=== PATIENT | female | born 1935 | race Caucasian/White ===

== ENCOUNTER 2019-03-25 07:37 | Inpatient (IN) | payer MEDICARE, BC ==
[~2019-03-25] VITALS: Ht 162.6 cm; Wt 60.8 kg
[2019-03-25] MEDS ORDERED: ONDANSETRON HCL/PF 4 MG/2 ML VIAL IVP ONE (08:00)
[2019-03-25] MEDS ORDERED: ONDANSETRON HCL/PF 4 MG/2 ML VIAL ONE (08:00)
[2019-03-25] MEDS ORDERED: IV NS 0.9% 1,000 ML BAG IV ONE (08:00)
[2019-03-25 08:33] LABS: BASOPHILS # (AUTO) 0.2 /CMM (0.0-0.2); EOSINOPHILS % (AUTO) 0.3 % (0.0-6.0); HEMATOCRIT 41 % (33-45); HEMOGLOBIN 14.2 g/dL (11.5-14.8); LYMPHOCYTES # (AUTO) 1.4 /CMM (0.8-4.8); LYMPHOCYTES % (AUTO) 12.3 % (20.0-44.0); MEAN CORPUSCULAR HGB CONC 34 g/dl (31.0-36.0); MEAN CORPUSCULAR VOLUME 90 fL (82-100); MONOCYTES # (AUTO) 0.9 /CMM (0.1-1.30); MONOCYTES % (AUTO) 7.7 % (2.0-12.0); NEUTROPHILS # (AUTO) 8.6 /CMM (1.8-8.9); NEUTROPHILS % (AUTO) 77.7 % (43.0-81.0); PLATELET COUNT (AUTO) 267 /CMM (150-450); RED BLOOD CELL COUNT(AUTO) 4.63 MIL/uL (4.0-5.2); WHITE BLOOD COUNT (AUTO) 11.1 K/uL (4.3-11.0)
[2019-03-25 08:41] LABS: CALCIUM, SERUM 9.8 mg/dL (8.5-10.1); CARBON DIOXIDE 25 mmol/L (21-32); CHLORIDE 95 mmol/L (98-107); CREATININE 1.1 mg/dL (0.6-1.3); GLUCOSE 108 mg/dL (74-106); POTASSIUM 3.6 mmol/L (3.5-5.1); SODIUM SERUM 132 mmol/L (136-145); UREA NITROGEN, BLOOD 23 mg/dL (7-18)
[2019-03-25] MEDS ORDERED: LORAZEPAM INJ 2 MG/ML VIAL ONE (08:43)
[2019-03-25 08:52] LABS: ALANINE AMINOTRANSFERASE 34 U/L (12-78); ALKALINE PHOSPHATASE 156 U/L (46-116); ASPARTATE AMINOTRANSFERASE 37 U/L (15-37); BILIRUBIN,TOTAL 0.6 mg/dL (0.2-1.0); LIPASE 179 U/L (73-393); TOTAL PROTEIN, SERUM 8.1 g/dL (6.4-8.2)
[2019-03-25] MEDS ORDERED: LORAZEPAM INJ 2 MG/ML VIAL IV ONE (09:00)
[2019-03-25] MEDS ORDERED: AMLO5TAB9 PO (09:31)
[2019-03-25] MEDS ORDERED: MULT-24 PO (09:31)
[2019-03-25] MEDS: NITROGLYCERIN 0.4 MG/HR PATCH.TD24 TD SCH (10:00)
[2019-03-25] MEDS ORDERED: ASPIRIN 325 MG TABLET PO ONE (10:00)
[2019-03-25] MEDS ORDERED: ASPIRIN 325 MG TABLET ONE (10:04)
[2019-03-25 10:06] LABS: APPEARANCE,URINE Turbid (CLEAR); BILIRUBIN,URINE Negative (NEGATIVE); BLOOD, URINE Trace-intact Ery/uL (NEGATIVE); COLOR,URINE Yellow (YELLOW); KETONES,URINE Negative (NEGATIVE); LEUKOCYTE ESTERASE ,URINE Large (NEGATIVE); NITRITE, URINE Negative (NEGATIVE); PH,URINE 8.5 (5.0-8.0); PROTEIN,URINE 30 mg/dl (NEGATIVE); UGLUCOSE Negative (NEGATIVE); UROBILINOGEN,URINE 0.2 EU/dL (0.2)
[2019-03-25] MEDS ORDERED: NITROGLYCERIN PACKET 1 GM PACKET ONE (10:06)
[2019-03-25 10:16] LABS: BACTERIA,URINE Many /HPF (None Seen); RBC,URINE 0-2 /HPF (0-2); SQUAMOUS EPITHELIAL CELL,UR Few /HPF (None Seen)
[2019-03-25] MEDS ORDERED: NITROGLYCERIN PACKET 1 GM PACKET TOP ONE (10:30)
[2019-03-25] MEDS ORDERED: CEFTRIAXONE 1GM BAG (ER ONLY) 1 GM/50 ML PIGGYBACK IV ONE (10:30)
[2019-03-25] MEDS ORDERED: CEFTRIAXONE 1GM BAG (ER ONLY) 50 ML IV ONE (10:56)
[2019-03-25] MEDS ORDERED: HYDROCODONE/APAP 5/325MG 1 EACH TABLET PO PRN (11:00)
[2019-03-25] MEDS ORDERED: ASPIRIN 300 MG/SUPP.RECT RC ONE (11:00)
[2019-03-25] MEDS ORDERED: MAG HYDROX/AL HYDROX/SIMETH 30 ML UDC PO PRN (11:00)
[2019-03-25] MEDS ORDERED: NITROGLYCERIN 0.4 MG/TAB BOTTLE SL PRN (11:00)
[2019-03-25] MEDS ORDERED: MORPHINE SULFATE INJ 2 MG/ML DISP.SYRIN IV PRN (11:00)
[2019-03-25] MEDS ORDERED: MAGNESIUM HYDROXIDE 30 ML UDC PO PRN (11:00)
[2019-03-25] MEDS ORDERED: ACETAMINOPHEN 325 MG TABLET PO PRN (11:00)
[2019-03-25] MEDS ORDERED: IV NS 0.9% 1,000 ML IV PRN ×2 (11:30→11:36)
[2019-03-25 12:15] VITALS: BP 139/83
[2019-03-25] MEDS ORDERED: TEMAZEPAM 7.5 MG CAPSULE PO PRN (12:30)
[2019-03-25] MEDS: AMLODIPINE BESYLATE 5 MG TABLET PO SCH (13:16)
[2019-03-25] MEDS: LOSARTAN POTASSIUM 50 MG TABLET PO SCH (13:16)
[2019-03-25] MEDS: PANTOPRAZOLE 40 MG TABLET.DR PO SCH (13:16)
[2019-03-25] MEDS: ATORVASTATIN 10 MG TABLET PO SCH (13:16)
[2019-03-25] MEDS: CARVEDILOL 3.125 MG TABLET PO SCH ×2 (13:16→20:49)
[2019-03-25] MEDS: ONDANSETRON HCL/PF 4 MG/2 ML VIAL IVP PRN ×2 (13:27→20:53)
[2019-03-25 16:00] VITALS: BP 148/94
[2019-03-25 20:00] VITALS: BP 153/89
[2019-03-26] VITALS: BP 117/77
[2019-03-26 04:00] VITALS: BP 118/79
[2019-03-26 06:20] LABS: BASOPHILS % (AUTO) 0.3 % (0.0-2.0); EOSINOPHILS % (AUTO) 3.4 % (0.0-6.0); HEMATOCRIT 38 % (33-45); HEMOGLOBIN 12.6 g/dL (11.5-14.8); LYMPHOCYTES # (AUTO) 1.8 /CMM (0.8-4.8); LYMPHOCYTES % (AUTO) 19.3 % (20.0-44.0); MEAN CORPUSCULAR HGB CONC 33 g/dl (31.0-36.0); MEAN CORPUSCULAR VOLUME 90 fL (82-100); MONOCYTES # (AUTO) 0.8 /CMM (0.1-1.30); MONOCYTES % (AUTO) 9.2 % (2.0-12.0); NEUTROPHILS # (AUTO) 6.2 /CMM (1.8-8.9); NEUTROPHILS % (AUTO) 67.8 % (43.0-81.0); PLATELET COUNT (AUTO) 214 /CMM (150-450); RED BLOOD CELL COUNT(AUTO) 4.21 MIL/uL (4.0-5.2); WHITE BLOOD COUNT (AUTO) 9.1 K/uL (4.3-11.0)
[2019-03-26 06:26] LABS: ALANINE AMINOTRANSFERASE 22 U/L (12-78); ALKALINE PHOSPHATASE 122 U/L (46-116); ASPARTATE AMINOTRANSFERASE 23 U/L (15-37); BILIRUBIN,TOTAL 0.5 mg/dL (0.2-1.0); CALCIUM, SERUM 8.5 mg/dL (8.5-10.1); CARBON DIOXIDE 25 mmol/L (21-32); CHLORIDE 101 mmol/L (98-107); CREATININE 1.1 mg/dL (0.6-1.3); GLUCOSE 96 mg/dL (74-106); MAGNESIUM 1.7 mg/dL (1.8-2.4); PHOSPHORUS 2.9 mg/dL (2.5-4.9); POTASSIUM 3.3 mmol/L (3.5-5.1); SODIUM SERUM 136 mmol/L (136-145); UREA NITROGEN, BLOOD 15 mg/dL (7-18)
[2019-03-26 06:57] LABS: CHOLESTEROL 175 mg/dL (<200); HDL CHOLESTEROL 67 mg/dL (40-60); LDL 96 mg/dL (0-99); TRIGLYCERIDES 74 mg/dL (30-150)
[2019-03-26 08:00] VITALS: BP 114/75
[2019-03-26] MEDS: PANTOPRAZOLE 40 MG TABLET.DR PO SCH (08:34)
[2019-03-26] MEDS: CEFTRIAXONE 1 G in IV D5W 50 ML IV SCH (08:34)
[2019-03-26] MEDS: ASPIRIN 325 MG TABLET PO SCH (08:34)
[2019-03-26] MEDS: MULTIVITAMINS,THERAGRAN 1 UDTAB TABLET PO SCH (08:34)
[2019-03-26] MEDS: AMLODIPINE BESYLATE 5 MG TABLET PO SCH (08:35)
[2019-03-26] MEDS: ATORVASTATIN 10 MG TABLET PO SCH (08:35)
[2019-03-26] MEDS: LOSARTAN POTASSIUM 50 MG TABLET PO SCH (08:35)
[2019-03-26] MEDS: CARVEDILOL 3.125 MG TABLET PO SCH ×2 (08:35→20:26)
[2019-03-26] MEDS: ONDANSETRON HCL/PF 4 MG/2 ML VIAL IVP PRN ×2 (08:38→20:17)
[2019-03-26] MEDS: NITROGLYCERIN 0.4 MG/HR PATCH.TD24 TD SCH (10:00)
[2019-03-26] MEDS ORDERED: AMLODIPINE BESYLATE 5 MG TABLET PO ONE (11:00)
[2019-03-26] MEDS: Magnesium 1GM/D5W 100ML PREMIX 100 ML IV SCH ×2 (11:10→12:39)
[2019-03-26] MEDS: POTASSIUM CHLORIDE 20 MEQ TAB.PRT.SR PO SCH ×3 (11:10→14:25)
[2019-03-26 12:00] VITALS: BP 145/86
[2019-03-26] MEDS ORDERED: PHENAZOPYRIDINE HCL 200 MG TABLET PO PRN (15:30)
[2019-03-26 16:00] VITALS: BP 119/77
[2019-03-26 20:00] VITALS: BP 128/82
[2019-03-27 04:00] VITALS: BP 130/84
[2019-03-27 07:04] LABS: CALCIUM, SERUM 8.9 mg/dL (8.5-10.1); CARBON DIOXIDE 22 mmol/L (21-32); CHLORIDE 109 mmol/L (98-107); GLUCOSE 98 mg/dL (74-106); MAGNESIUM 2.3 mg/dL (1.8-2.4); POTASSIUM 4.1 mmol/L (3.5-5.1); SODIUM SERUM 143 mmol/L (136-145); UREA NITROGEN, BLOOD 14 mg/dL (7-18)
[2019-03-27 08:00] VITALS: BP 114/69
[2019-03-27] MEDS: ASPIRIN 325 MG TABLET PO SCH (09:42)
[2019-03-27] MEDS: ATORVASTATIN 10 MG TABLET PO SCH (09:42)
[2019-03-27] MEDS: PANTOPRAZOLE 40 MG TABLET.DR PO SCH (09:43)
[2019-03-27] MEDS: MULTIVITAMINS,THERAGRAN 1 UDTAB TABLET PO SCH (09:43)
[2019-03-27] MEDS: AMLODIPINE BESYLATE 10 MG TABLET PO SCH (09:43)
[2019-03-27] MEDS: LOSARTAN POTASSIUM 50 MG TABLET PO SCH (09:43)
[2019-03-27] MEDS: CARVEDILOL 3.125 MG TABLET PO SCH (09:44)
[2019-03-27] MEDS: CEFTRIAXONE 1 G in IV D5W 50 ML IV SCH (09:44)
[2019-03-27] MEDS: NITROGLYCERIN 0.4 MG/HR PATCH.TD24 TD SCH (09:49)
[2019-03-27] MEDS ORDERED: IOHEXOL-350 100 ML VIAL IV ONE ×3 (14:55→15:59)
[2019-03-27] MEDS ORDERED: CT SWABBABLE VALVE TRANS SET 1 EA INFUS.SET MC ONE (14:55)
[2019-03-27] MEDS ORDERED: IV NS 0.9% 250 ML IV ONE (14:55)
[2019-03-27] MEDS ORDERED: METOPROLOL TARTRATE INJ 5 MG/5 ML AMPUL ONE ×2 (15:21→15:29)
[2019-03-27] MEDS ORDERED: NITROGLYCERIN 0.4 MG/TAB BOTTLE ONE (15:29)
[2019-03-27 16:00] VITALS: BP 149/68
[2019-03-27] MEDS ORDERED: METOPROLOL TARTRATE INJ 5 MG/5 ML AMPUL IVP ONE (16:00)
[2019-03-27] MEDS ORDERED: IV NS 0.9% 500 ML IV ONE (16:00)
[2019-03-27] MEDS ORDERED: NITROGLYCERIN 0.4 MG/TAB BOTTLE SL ONE (16:00)
[2019-03-27 20:00] VITALS: BP 110/71
[2019-03-27] MEDS: CARVEDILOL 6.25 MG TABLET PO SCH (21:23)
[2019-03-27] MEDS ORDERED: ZOLPIDEM TARTRATE 5 MG TABLET PO PRN (23:00)
[2019-03-28 04:00] VITALS: BP 100/62
[2019-03-28 07:17] LABS: BASOPHILS # (AUTO) 0.1 /CMM (0.0-0.2); EOSINOPHILS % (AUTO) 6.3 % (0.0-6.0); HEMATOCRIT 37 % (33-45); HEMOGLOBIN 12.5 g/dL (11.5-14.8); LYMPHOCYTES % (AUTO) 27.1 % (20.0-44.0); MEAN CORPUSCULAR HGB CONC 34 g/dl (31.0-36.0); MEAN CORPUSCULAR VOLUME 90 fL (82-100); MONOCYTES # (AUTO) 0.8 /CMM (0.1-1.30); MONOCYTES % (AUTO) 10.4 % (2.0-12.0); NEUTROPHILS # (AUTO) 4.1 /CMM (1.8-8.9); NEUTROPHILS % (AUTO) 55.2 % (43.0-81.0); PLATELET COUNT (AUTO) 242 /CMM (150-450); RED BLOOD CELL COUNT(AUTO) 4.13 MIL/uL (4.0-5.2); WHITE BLOOD COUNT (AUTO) 7.4 K/uL (4.3-11.0)
[2019-03-28 07:42] LABS: CALCIUM, SERUM 8.9 mg/dL (8.5-10.1); CARBON DIOXIDE 23 mmol/L (21-32); CHLORIDE 108 mmol/L (98-107); CREATININE 1.1 mg/dL (0.6-1.3); GLUCOSE 87 mg/dL (74-106); POTASSIUM 4.1 mmol/L (3.5-5.1); SODIUM SERUM 142 mmol/L (136-145); UREA NITROGEN, BLOOD 16 mg/dL (7-18)
[2019-03-28 08:00] VITALS: BP 117/72
[2019-03-28] MEDS: MULTIVITAMINS,THERAGRAN 1 UDTAB TABLET PO SCH (09:14)
[2019-03-28] MEDS: ATORVASTATIN 10 MG TABLET PO SCH (09:16)
[2019-03-28] MEDS: LOSARTAN POTASSIUM 50 MG TABLET PO SCH (09:16)
[2019-03-28] MEDS: ASPIRIN 325 MG TABLET PO SCH (09:16)
[2019-03-28] MEDS: AMLODIPINE BESYLATE 10 MG TABLET PO SCH (09:16)
[2019-03-28] MEDS: PANTOPRAZOLE 40 MG TABLET.DR PO SCH (09:17)
[2019-03-28] MEDS: CARVEDILOL 6.25 MG TABLET PO SCH (09:18)
[2019-03-28 09:19] VITALS: BP 117/72
[2019-03-28] MEDS: CEFTRIAXONE 1 G in IV D5W 50 ML IV SCH (09:19)
[2019-03-28] MEDS: NITROGLYCERIN 0.4 MG/HR PATCH.TD24 TD SCH (09:19)
[2019-03-28] MEDS ORDERED: ATOR10TA PO (11:05)
[2019-03-28] MEDS ORDERED: ASPI-605 PO (11:05)
[2019-03-28] MEDS ORDERED: AMLO10TA7 PO (11:05)
[2019-03-28] MEDS ORDERED: LOSA50TA3 PO (11:05)
[2019-03-28] MEDS ORDERED: CARV6.252 PO (11:05)
== END 2019-03-28 12:40 | disposition home health service (06) | DRG 689 ==
LOC: ER 07:39 → TELE-TD 11:52 → MEDSG1 03-26 11:20
PROVIDERS: ADMIT Nurse Practitioner Acute Care; ATTEND Family Medicine
DX: N39.0 Urinary tract infection, site not specified (principal); I21.A1 Myocardial infarction type 2; E87.1 Hypo-osmolality and hyponatremia; E87.2 Acidosis; I16.0 Hypertensive urgency; E87.6 Hypokalemia; E83.42 Hypomagnesemia; J45.909 Unspecified asthma, uncomplicated; Z85.828 Personal history of other malignant neoplasm of skin; E86.1 Hypovolemia; F41.9 Anxiety disorder, unspecified; F03.90 Unspecified dementia, unspecified severity, without behavioral disturbance, psychotic disturbance, mood disturbance, and anxiety; Z98.890 Other specified postprocedural states; I08.0 Rheumatic disorders of both mitral and aortic valves
CPT/HCPCS: 36415; 75574; 80048-TC; 80053-TC; 80061-TC; 80076-TC; 81000-TC; 83605-TC; 83690-TC; 83735-TC; 84100-TC; 84439-TC; 84484-TC; 85025-TC; 87081-TC; 87086-TC; 93307-TC; G0378; J0696; J2060; J2405; J3475; J3490; J7030; J7050; J7060; Q9967

== ENCOUNTER 2019-04-01 08:46 | Emergency (ER) | payer MEDICARE, BC ==
[~2019-04-01] VITALS: Ht 160 cm; Wt 57.2 kg
[~2019-04-01 08:46] MED LIST: AMLO10TA7 PO; ASPI-605 PO; ATOR10TA PO; CARV6.252 PO; LOSA50TA3 PO; MULT-24 PO
--- NOTE | 2019-04-01 09:00 | NUR ---
patient BIB daughter c/o lightheadedness, ambulatory. On room air, breathing evenly and unlabored. connected to the monitor and pulse ox. will continue to monitor accordingly. IV access initiated, blood drawned. Kept comfortable.
[2019-04-01 09:40] LABS: BASOPHILS % (AUTO) 0.7 % (0.0-2.0); EOSINOPHILS % (AUTO) 3.5 % (0.0-6.0); HEMATOCRIT 40 % (33-45); HEMOGLOBIN 13.9 g/dL (11.5-14.8); LYMPHOCYTES # (AUTO) 0.9 /CMM (0.8-4.8); LYMPHOCYTES % (AUTO) 15.3 % (20.0-44.0); MEAN CORPUSCULAR HGB CONC 35 g/dl (31.0-36.0); MEAN CORPUSCULAR VOLUME 89 fL (82-100); MONOCYTES # (AUTO) 0.6 /CMM (0.1-1.30); MONOCYTES % (AUTO) 9.7 % (2.0-12.0); NEUTROPHILS # (AUTO) 4.3 /CMM (1.8-8.9); NEUTROPHILS % (AUTO) 70.8 % (43.0-81.0); PLATELET COUNT (AUTO) 274 /CMM (150-450)
[2019-04-01 10:05] LABS: CALCIUM, SERUM 9.1 mg/dL (8.5-10.1); CARBON DIOXIDE 26 mmol/L (21-32); CHLORIDE 91 mmol/L (98-107); CREATININE 0.9 mg/dL (0.6-1.3); GLUCOSE 109 mg/dL (74-106); POTASSIUM 3.4 mmol/L (3.5-5.1); SODIUM SERUM 126 mmol/L (136-145); UREA NITROGEN, BLOOD 12 mg/dL (7-18)
[2019-04-01] MEDS ORDERED: ONDANSETRON HCL/PF 4 MG/2 ML VIAL IV ONE (10:30)
[2019-04-01] MEDS ORDERED: IV NS 0.9% 1,000 ML BAG IV ONE (10:30)
[2019-04-01] MEDS ORDERED: ONDANSETRON HCL/PF 4 MG/2 ML VIAL ONE (10:32)
--- NOTE | 2019-04-01 10:42 | NUR ---
URINE COLLECTED AND SENT TO LAB.
--- NOTE | 2019-04-01 10:48 | NUR ---
EPIC CALLED 2ND TIME
[2019-04-01 13:46] VITALS: BP 135/71
--- NOTE | 2019-04-01 13:47 | NUR ---
Patient discharged to home in stable condition. Written and verbal after care instructions given. Patient verbalizes understanding of instruction.IV removed. Catheter intact and site benign. Pressure and 4x4 applied to site. No bleeding noted.
== END 2019-04-01 13:47 | disposition home or self-care (01) ==
LOC: ER 08:48
DX: R55 Syncope and collapse (principal); R42 Dizziness and giddiness; R11.0 Nausea; E87.1 Hypo-osmolality and hyponatremia; E87.6 Hypokalemia; I10 Essential (primary) hypertension; J45.909 Unspecified asthma, uncomplicated; F41.9 Anxiety disorder, unspecified; Z98.890 Other specified postprocedural states; Z88.1 Allergy status to other antibiotic agents; Z85.828 Personal history of other malignant neoplasm of skin; Z79.899 Other long term (current) drug therapy
CPT/HCPCS: 36415; 71045; 80048; 84484 ×2; 85025; 93005 ×2; 96361; 96374; 99284; J2405; J7030